=== PATIENT | female | born 1950 | race African-American/Black ===

== ENCOUNTER 2018-08-23 07:04 | Observation (INO) ==
[2018-08-23 08:31] LABS: URINE SOURCE CLEAN CATCH
[2018-08-23 08:32] LABS: BILIRUBIN URINE NEGATIVE (NEGATIVE); BLOOD URINE NEGATIVE (NEGATIVE); COLOR YELLOW; GLUCOSE URINE NEGATIVE (NEGATIVE); KETONE URINE NEGATIVE (NEGATIVE); LEUKOCYTES URINE LARGE (NEGATIVE); NITRITE URINE NEGATIVE (NEGATIVE); PH URINE 5.5; PROTEIN URINE NEGATIVE (NEGATIVE); SP GRAVITY URINE 1.014; TURBIDITY URINE CLEAR (CLEAR); UROBILINOGEN URINE NORMAL (NORMAL)
[2018-08-23 08:33] LABS: BASO# 0.06 X1000 (0.0-0.2); EOS# 0.16 X1000 (0.0-0.7); EOS% 2.6 % (0.0-10.0); HEMATOCRIT 38.5 % (37.0-47.0); LYMPH# 2.11 X1000 (1.2-3.4); MCH 27.8 PG (27-31); MCHC 33.8 g/dL (33-37); MCV 82.4 FL (81-99); MONO# 0.38 X1000 (0.11-0.59); MONO% 6.1 % (1.7-9.3); MPV 10.1 FL (7.4-10.4); NEUT% 56.3 % (42.2-75.2); PLT 217 X1000 (130-400); RBC 4.67 XMIL (4.2-5.4); RDW 14.4 % (11.5-14.5); WBC 6.21 X1000 (4.8-10.8)
--- NOTE | 2018-08-23 08:45 | Diag Imaging Result Doc PS360 ---
EXAM: CT HEAD W/O CONTRAST 08/23/2018 HISTORY: blurred vision TECHNIQUE: This exam was performed using automated exposure control, adjustment of mA or kV according to patient size, and/or use of iterative reconstruction technique. COMMENT: There is no evidence of mass effect, bleed, or abnormal extra-axial fluid collection. There are calcifications in the right vertebral and both internal carotid arteries. There are some ill-defined lucencies in the white matter of both hemispheres particularly in the centrum semiovale ovale on the right. There is some questionable lucency in the right caudate nucleus. The visualized paranasal sinuses are clear. The calvarium is intact. IMPRESSION: Probable chronic microvascular disease. No evidence of acute abnormality. Electronically signed by Marcelo Palacios 08/23/2018 8:42 AM
[2018-08-23 08:47] LABS: UR EPITHELIAL CELLS <10 /HPF (<10); URINE BACTERIA NEGATIVE /HPF; URINE RBC <10 /HPF (<10); URINE WBC 20-40 /HPF (<10)
[2018-08-23 08:50] LABS: AGAP 10; ALB/GLOB RATIO 1.7; ALKALINE PHOSPHATASE 97 U/L (32-104); BUN 16 mg/dL (8-22); CALCIUM 9.1 mg/dL (8.8-10.2); CHLORIDE 103 mmol/L (98-107); COSMO 285; CREATININE 0.8 mg/dL (0.5-0.9); ESTIMATED GFR > 60; GLUCOSE 172 mg/dL (70-104); GOT 18 U/L (10-30); GPT 19 U/L (10-36); POTASSIUM 3.3 mmol/L (3.5-5.1); SODIUM 140 mmol/L (136-145); TCO2 27 mmol/L (25-35); TOTAL BILIRUBIN 0.47 mg/dL (0.20-1.00); TOTAL PROTEIN 6.4 g/dL (6.3-8.3)
--- NOTE | 2018-08-23 09:24 | EKG Report ---
Test Performed on : 08/23/2018 09:20:56 AM Test Reason : LOW BLOOD SUGAR Blood Pressure : / mmHG Vent. Rate : 064 BPM Atrial Rate : 064 BPM P-R Int : 138 ms QRS Dur : 078 ms QT Int : 366 ms P-R-T Axes : 046 -05 014 degrees QTc Int : 377 ms Sinus rhythm. with marked sinus arrhythmia. Minimal voltage criteria for LVH, may be normal variant Possible Anterior infarct (cited on or before 13-JAN-2011) Abnormal ECG When compared with ECG of 14-JAN-2011 06:29, QT has shortened Unconfirmed Result
[2018-08-23] MEDS ORDERED: ROCEPHIN 1 GM in NS 50 ML IV ONE (09:26)
--- NOTE | 2018-08-23 09:36 | PROVIDER DOCUMENTATION ---
HPI-Syncope/Dizziness - General Chief Complaint: Low Blood Sugar Stated Complaint: NEEDS SUGAR CHECKED Time Seen by Provider: 08/23/18 07:22 Source: patient Allergies/Adverse Reactions: Patient Allergies Allergy/AdvReac Type Severity Reaction Status Date / Time No Known Allergies Allergy Verified 04/29/12 22:36 Home Medications: Home Medication List Medication Instructions Recorded Confirmed Last Taken Type Aspirin 81 mg PO DAILY 04/29/12 04/29/12 Unknown History Atorvastatin Calcium [Lipitor] 20 mg PO DAILY 04/29/12 04/29/12 Unknown History Ca Cmb No.1/Vit D3/B-6/FA/B12 1 each PO 04/29/12 04/29/12 Unknown History [Vitamin D3 1,000 Unit Tablet] Hydrochlorothiazide 25 mg PO DAILY 04/29/12 04/29/12 Unknown History Furosemide [Lasix] 40 mg PO DAILY 05/11/16 05/11/16 Unknown History Potassium Chloride [Klor-Con 10] 10 meq PO DAILY 05/11/16 05/11/16 Unknown History - History of Present Illness-Syncope/Dizzy Nature of Presenting Problem: 68 y/o BF c/o dizziness and blurred vision in the ER while visiting her mother. Pt is a DM and admits that she hasnt eaten since 2pm yesterday. Prior Episodes: reports: no prior history Onset/Duration: reports: 1/2 hour ago Timing: reports: improving Position/Activity at time of episode: reports: standing Symptoms prior to episode: reports: none Context: reports: felt faint Loss of Consciousness: no loss of consciousness Location of injury. (If syncope resulted in an injury.): reports: none Current Symptoms: reports: dizzy, blurred vision Recently Seen Here or By Another Healthcare Provider: No - Dizziness Severity in ED: reports: mild Dizziness Related Current/Associated Symptoms: reports: dizzy, blurred vision Any recent trauma/injury?: reports: none Modifying Factors: improves with: nothing Patient usually:: reports: walks without assistance Review of Systems - Adult - REVIEW OF SYSTEMS - ADULT Constitutional: reports: no symptoms reported, see HPI Eyes: reports: no symptoms reported, see HPI Ears, Nose, Mouth & Throat: reports: no symptoms reported, see HPI Cardiovascular: reports: no symptoms reported, see HPI Respiratory: reports: no symptoms reported, see HPI Gastrointestinal: reports: see HPI, abdominal pain (mild suprapubic tenderness with palpation) Genitourinary: reports: no symptoms reported, see HPI Musculoskeletal: reports: no symptoms reported, see HPI Integumentary: reports: no symptoms reported, see HPI Neurological: reports: dizziness/vertigo Psychiatric: reports: no symptoms reported, see HPI Endocrine: reports: no symptoms reported, see HPI Hematologic/Lymphatic: reports: no symptoms reported, see HPI Allergic/Immunologic: reports: no symptoms reported, see HPI All Other Systems: Reviewed and Negative Past History - Adult - PAST MEDICAL HISTORY-ADULT Review of Records: reports: Nursing Assessment Review, Medications Reviewed, Social history reviewed & non-contributory. Cardiovascular: reports: HTN, hyperlipidemia Endocrine/Immune: reports: Diabetes - PRIOR SURGERIES/PROCEDURES Surgical/Procedure History: reports: cholecystectomy, , orthopedic (extremity) - IMMUNIZATION STATUS Childhood Immunizations: See Nurse Assessment Flu Vaccine: See Nurse Assessment - FAMILY HISTORY Family History: reviewed, not pertinent Physical Exam-General - PHYSICAL EXAM-ADULT Initial Vital Signs Reviewed: Yes - CONSTITUTIONAL General Appearance: appears well, alert - EYES Eyes: PERRL/EOMI - HEAD, EARS, NOSE, MOUTH & THROAT HENMT: normocephalic/atraumatic, moist mucous membranes - NECK Neck: non-tender, full range of motion, supple, normal inspection - RESPIRATORY Respiratory: chest non-tender, lungs clear, normal breath sounds, no pleuratic chest pain, no respiratory distress, no accessory muscle use - CARDIOVASCULAR Cardiovascular: normal peripheral pulses, regular rate, rhythm, no edema, no gallop, no JVD, no murmur - GASTROINTESTINAL (ABDOMEN) Abdominal Exam: normal bowel sounds, soft, no organomegaly, no pulsatile mass, tenderness (mild suprapubic tenderness) - LYMPHATIC Lymphatic: no adenopathy - MUSCULOSKELETAL Back Exam: normal inspection, no CVA tenderness, no vertebral tenderness Extremity: normal range of motion, non-tender, normal gait, normal inspection, no pedal edema, no calf tenderness, normal capillary refill - SKIN Integumentary: normal color, normal turgor - NEUROLOGIC Neurologic: programming engineer II-XII nml as tested, grossly normal, no motor/sensory deficits - PSYCHIATRIC Psych/Mental Status: normal mood/affect, normal thought content, normal thought process, oriented x 3 Progress - PLAN OF CARE/RESULTS Progress/Plan/Lab Results: Vital Signs - 8 hr 08/23/18 07:06 Pulse Rate 68 Respiratory Rate 22 Blood Pressure 92/67 O2 Sat by Pulse Oximetry 99 Laboratory Results - last 24 hr 08/23/18 08/23/18 08/23/18 07:15 08:11 08:11 WBC 6.21 RBC 4.67 Hgb 13.0 Hct 38.5 MCV 82.4 MCH 27.8 MCHC 33.8 RDW Std Deviation 14.4 Plt Count 217 MPV 10.1 Immature Gran % (Auto) 0.0 Neut % (Auto) 56.3 Lymph % (Auto) 34.0 Holt % (Auto) 6.1 Eos % (Auto) 2.6 Baso % (Auto) 1.0 H Immature Gran # (Auto) 0.00 Neut # (Auto) 3.50 Lymph # (Auto) 2.11 Holt # (Auto) 0.38 Eos # (Auto) 0.16 Baso # (Auto) 0.06 Sodium 140 Potassium 3.3 L Chloride 103 Carbon Dioxide 27 Anion Gap 10 BUN 16 Creatinine 0.8 Estimated GFR/1.73 m2 > 60 BUN/Creatinine Ratio 20 Glucose 172 H POC Glucose 155 H Calculated Osmolality 285 Calcium 9.1 Total Bilirubin 0.47 AST 18 ALT 19 Alkaline Phosphatase 97 Total Protein 6.4 Albumin 4.0 Globulin 2.4 Albumin/Globulin Ratio 1.7 Urine Source Urine Color Urine Turbidity Urine pH Ur Specific [place] Urine Protein Ur Glucose (Stick) Ur Ketones (Stick) Urine Blood Urine Nitrite Urine Bilirubin Urobilinogen Dipstick Urine Leukocytes Urine WBC (Auto) Urine RBC (Auto) U Epithel Cells (Auto) Urine Bacteria (Auto) Urine Crystals Small Round Cells Urine Casts Urine Yeast-like Cells 08/23/18 08:15 WBC RBC Hgb Hct MCV MCH MCHC RDW Std Deviation Plt Count MPV Immature Gran % (Auto) Neut % (Auto) Lymph % (Auto) [place] % (Auto) Eos % (Auto) Baso % (Auto) Immature Gran # (Auto) Neut # (Auto) Lymph # (Auto) Holt # (Auto) Eos # (Auto) Baso # (Auto) Sodium Potassium Chloride Carbon Dioxide Anion Gap BUN Creatinine Estimated GFR/1.73 m2 BUN/Creatinine Ratio Glucose POC Glucose Calculated Osmolality Calcium Total Bilirubin AST ALT Alkaline Phosphatase Total Protein Albumin Globulin Albumin/Globulin Ratio Urine Source CLEAN CATCH Urine Color YELLOW Urine Turbidity CLEAR Urine pH 5.5 Ur Specific [place] 1.014 Urine Protein NEGATIVE Ur Glucose (Stick) NEGATIVE Ur Ketones (Stick) NEGATIVE Urine Blood NEGATIVE Urine Nitrite NEGATIVE Urine Bilirubin NEGATIVE Urobilinogen Dipstick NORMAL Urine Leukocytes LARGE A Urine WBC (Auto) 20-40 A Urine RBC (Auto) <10 U Epithel Cells (Auto) <10 Urine Bacteria (Auto) NEGATIVE Urine Crystals Not Reportable Small Round Cells Not Reportable Urine Casts Not Reportable Urine Yeast-like Cells Not Reportable Orders Category Date Time Status Diabetic Diet Diet 08/23/18 08:[address] HEAD W/O CONTRAST [CT] Stat Exams 08/23/18 07:29 Completed CBC WITH ELECTRONIC DIFF [HEME] Stat Lab 08/23/18 08:11 Completed COMPREHENSIVE METABOLIC PANEL [CHEM] Stat Lab 08/23/18 08:11 Completed UA [URINALYSIS W/POSS RFLX CULT] [URINALYSIS] Stat Lab 08/23/18 08:15 Completed URINE MANUAL MICROSCOPIC [URINALYSIS] Stat Lab 08/23/18 08:15 Completed CefTRIAXONE [Rocephin] 1 gm Med 08/23/18 09:26 Discontinued 0.9% Sodium Chloride Inj [Ns] 50 ml IV NOW EKG [EKG] Stat Ther 08/23/18 07:30 Draft At recheck, pt has eaten in the ER and states that her symptoms have improved. Result Diagrams: 08/23/18 08:11 08/23/18 08:11 - EKG 1 Time of EKG reading by physician:: 09:20 EKG Read and Signed by:: Ankit Martin EKG Interpretation (*Must complete 3 of following elements*): Abnormal Rate: [address] [place]: normal QRS: normal [place] Interval: normal - CONSULTS/PCP/HOSPITALIST Notification #1 *Consult/PCP/Hospitalist*: [place] for Hospitalist Time Discussed: 10:02 Consult Disposition: Will see in ED, Admit Departure - Departure Date of Disposition Decision: 08/23/18 Time of Disposition Decision: 10:02 DIAGNOSIS: Dizziness, Blurred vision, UTI (urinary tract infection) Disposition: ADMITTED INPATIENT 09 Certified Medical Emergency: Emergent Condition: Fair Referrals and Follow-Ups: Leonardo Mtz DO [Primary Care Provider] - - Critical Care Note This patient required my direct & personal management of CC.: No Attestation - Physician/ TAPAN Attestation Patient care was provided by Advanced Practice Provider:: No The physician spent face to face time with patient:: Yes Advanced Practice Provider documentation review:: Supervising physician onsite and consulted in the evaluation and care of this patient. The physician did have a face to face encounter with the patient.
[2018-08-23] MEDS ORDERED: NS 1,000 ML IV ONE (11:06)
[2018-08-23] MEDS ORDERED: KLOR-CON PO ONE (11:09)
[2018-08-23] MEDS: NS 1,000 ML IV SCH (13:41)
--- NOTE | 2018-08-23 14:43 | HISTORY AND PHYSICAL ---
CHIEF COMPLAINT: Dizziness, blurred vision, generalized weakness. HISTORY OF PRESENT ILLNESS: This is a 68-year-old female with a history of diabetes mellitus, hypertension, high cholesterol. She presented as a patient to the emergency room after having a sudden onset of just generalized weakness, dizziness, and blurred vision while she was visiting her mother in the emergency room. She states that it had been about 20 hours since she had eaten last. She felt her blood sugar was low. She drank 2 cartons of juice and blood sugar in the emergency room was 155. At the time of my exam, she stated that her vision had cleared, although she still felt dizzy and "kind of weak all over." She denied any urinary symptoms. She denied any voiding symptoms, although she did state that she developed some low back pain last night. PAST MEDICAL HISTORY: Hypertension, diabetes mellitus type 2, hyperlipidemia. PAST SURGICAL HISTORY: Cholecystectomy, , and biopsy of a mole. SOCIAL HISTORY: She denies alcohol, tobacco, or illicit drug use. ALLERGIES: No known drug allergies. HOME MEDICATIONS: A list will be obtained by the nursing staff and once verified, we will review and restart as appropriate. REVIEW OF SYSTEMS: Discussed with the patient with pertinent positives stated in the HPI. She denied any syncope, any chest pain or palpitations, any shortness of breath, PND, orthopnea, cough, any fevers or chills, any night sweats, nausea, vomiting, diarrhea, constipation, black or bloody vomitus or stools, any hematuria, dysuria, frequency, urgency. PHYSICAL EXAMINATION: GENERAL: This is a 68-year-old female who is sitting up in the stretcher in the emergency room in no distress. VITAL SIGNS: Blood pressure is 98/64 with a heart rate of 68, respirations are 20, room air saturation 99%. EYES: Pupils equal, round, react to light. EOMs are intact. Sclerae anicteric. HEENT: Head is normocephalic, atraumatic. Mucous membranes are moist. NECK: Supple with trachea midline. CARDIOVASCULAR: Regular rate and rhythm. S1 and S2 are appreciated. She has no murmur. She has no lower extremity edema. Peripheral pulses are palpable x4 extremities. Calves are nontender bilateral. PULMONARY: Breath sounds are clear with no increased work of breathing noted. Chest rises and falls symmetric with respiration. Chest wall is nontender to palpation. GASTROINTESTINAL: Abdomen is soft, nontender, nondistended. Bowel sounds in all 4 quadrants. GENITOURINARY: She has no CVA tenderness. She does have some suprapubic tenderness to palpation. NEUROLOGIC: She is alert and oriented x3. SKIN: Warm and dry. LABORATORY DATA: WBC is 6.2 with hemoglobin 13, hematocrit 38.5, and platelets of 217,000. Sodium is 140, potassium 3.3, BUN 16, creatinine 0.8 with a glucose of 155. Urinalysis reveals 20 to 40 microscopic white blood cells with less than 10 epithelial red blood cells. Urine culture is pending. CT of the head revealed probable chronic microvascular disease. No evidence of acute abnormality. ASSESSMENT AND PLAN: 1. Dizziness. 2. Blurred vision resolved. 3. Possible urinary tract infection. 4. Hypotension. 5. Intravascular volume depletion. 6. Diabetes mellitus type 2. 7. History of hypertension. 8. History of high cholesterol. PLAN: The patient will be admitted to the medical floor. She will be placed on telemetry. We will rule her out with troponins and cardiac profiles. We will recheck an EKG this afternoon and in the morning. We will give a L bolus now and continue with hydration. Recheck a CBC, CMP, and EKG in the morning. We will hold her Lasix as well as her Cardizem and lisinopril. We will supplement her potassium. She will be placed on pattern blood glucose with sliding scale insulin. For DVT prophylaxis we will use SCDs and GI prophylaxis PPI. Further treatments pending hospital course and discussion with Dr. Rodriguez. Dictated by LOY Grande for [place] Rodriguez MD cc: LOY Grande DO
[2018-08-23] MEDS: HUMALOG SUBQ SCH ×2 (15:57→21:00)
[2018-08-24] MEDS: NS 1,000 ML IV SCH (03:00)
[2018-08-24 05:58] LABS: BASO# 0.03 X1000 (0.0-0.2); BASO% 0.5 % (0.0-0.8); EOS# 0.17 X1000 (0.0-0.7); EOS% 2.9 % (0.0-10.0); HEMATOCRIT 36.4 % (37.0-47.0); HEMOGLOBIN 12.1 g/dL (12.0-16.0); LYMPH# 2.48 X1000 (1.2-3.4); MCH 27.4 PG (27-31); MCHC 33.2 g/dL (33-37); MCV 82.5 FL (81-99); MONO# 0.37 X1000 (0.11-0.59); MONO% 6.3 % (1.7-9.3); MPV 10.3 FL (7.4-10.4); NEUT# 2.86 X1000 (1.4-6.5); NEUT% 48.3 % (42.2-75.2); PLT 200 X1000 (130-400); RBC 4.41 XMIL (4.2-5.4); RDW 14.3 % (11.5-14.5); WBC 5.91 X1000 (4.8-10.8)
[2018-08-24 06:23] LABS: AGAP 9; ALB/GLOB RATIO 1.6; ALBUMIN 3.4 g/dL (3.5-5.0); ALKALINE PHOSPHATASE 76 U/L (32-104); BUN 13 mg/dL (8-22); CALCIUM 8.1 mg/dL (8.8-10.2); CHLORIDE 111 mmol/L (98-107); COSMO 287; CREATININE 0.8 mg/dL (0.5-0.9); ESTIMATED GFR > 60; GLUCOSE 96 mg/dL (70-104); GOT 16 U/L (10-30); GPT 16 U/L (10-36); POTASSIUM 3.9 mmol/L (3.5-5.1); SODIUM 144 mmol/L (136-145); TCO2 24 mmol/L (25-35); TOTAL BILIRUBIN 0.52 mg/dL (0.20-1.00); TOTAL PROTEIN 5.5 g/dL (6.3-8.3)
--- NOTE | 2018-08-24 07:38 | EKG Report ---
Test Performed on : 08/24/2018 07:25:02 AM Test Reason : hypotension, dizzy Blood Pressure : / mmHG Vent. Rate : 061 BPM Atrial Rate : 061 BPM P-R Int : 148 ms QRS Dur : 074 ms QT Int : 408 ms P-R-T Axes : 041 -03 033 degrees QTc Int : 410 ms Sinus rhythm. with marked sinus arrhythmia. Possible Anterior infarct (cited on or before 13-JAN-2011) Abnormal ECG When compared with ECG of 23-AUG-2018 09:20, (Unconfirmed) No significant change was found Unconfirmed Result
[2018-08-24] MEDS: HUMALOG SUBQ SCH (07:49)
[2018-08-24 08:19] VITALS: BP 149/87
[2018-08-24] MEDS ORDERED: PRILOSEC PO SCH (09:00)
--- NOTE | 2018-08-25 19:52 | DISCHARGE SUMMARY ---
ADMISSION DATE: 08/23/2018 DISCHARGE DATE: 08/24/2018 STUDIES: Head CT with microvascular disease but no acute process. Troponins negative x3. CK within normal range x3, TSH within normal limits. LFTs within normal limits. Glucose 111 to 172. Kidney function normal. CBC within normal limits. Urinalysis suggestive of UTI with large leukocytes and 20 to 40 WBCs, no epithelial cells. Urine culture no growth to date. DISCHARGE DIAGNOSES: 1. Dizziness and blurred vision. 2. Dehydration. 3. Urinary tract infection. 4. Hypotension. 5. Hyperlipidemia. 6. Hypertensive by history. 7. Premature atrial contractions. HOSPITAL COURSE: The patient is a 68-year-old female with history of diabetes, hypertension, hyperlipidemia. She presents after sudden onset of generalized weakness, mild lightheadedness and blurred vision while she was visiting her mother in the ER. She stated been she had poor p.o. intake that day and poor fluid intake for several days. She initially thought her blood sugar might be low and drank some juice and had some peanut butter, but on check her sugar was fine. On discussion with the patient, it was found that she had been taking both Lasix and hydrochlorothiazide and also had very poor fluid intake for quite some time. She appeared dry on exam and so mild dehydration was favored. This was further supported by mildly low blood pressure at 92/67, which improved rapidly with fluids up to the 130s and 140s systolic. EKG showed no acute changes but did show some PACs. Cardiac workup with troponins and repeat EKG was unremarkable. She was watched on telemetry with no other events other than occasional PACs. The patient's symptoms completely resolved with fluid resuscitation. Patient's initial urinalysis was somewhat suggestive of [*]she had some slight suprapubic tenderness, so it is also thought that she had a UTI that may have been contributing somewhat. However urine culture came back completely negative and the patient denied any dysuria or urinary frequency or hesitancy so antibiotics were discontinued. After other workup was unremarkable and patient's symptoms remain resolved, she was discharged home in stable condition to follow up with her PCP. She was taken off of the Lasix for now but continued on the hydrochlorothiazide. If symptoms recur, then she may need long-term cardiac monitoring with Holter or loop recorder, but clinical picture and response to fluids are both consistent with over-diuresis with concurrent hydrochlorothiazide and Lasix. DISCHARGE VITAL SIGNS: Temperature 98.7 degrees, pulse 61, blood pressure 149/87, O2 saturation 99% on room air. DISCHARGE DIET: Cardiac. DISCHARGE MEDICATIONS: Aspirin 81 mg p.o. daily, hydrochlorothiazide 25 mg p.o. daily, atorvastatin 40 mg p.o. daily, lisinopril, 5 mg p.o. daily, Xanax as previously prescribed. FOLLOWUP PLAN: The patient discharging home to follow up with PCP. Discontinued Lasix. Continue hydrochlorothiazide starting tomorrow. If symptoms recur despite adjustment diuretics then may consider further cardiac workup. Greater than 30 minutes spent arranging discharge, counseling patient.
== END 2018-08-24 11:44 | disposition home or self-care (01) ==
LOC: 4N 07:04 → ED 07:04 → 4N 14:06
PROVIDERS: ATTEND Internal Medicine
CPT/HCPCS: 70450; 80053; 81001; 82550; 82948; 83735; 84443; 84484; 85025; 87088; 93005; A9270; J0696; J7030; XXXXX